=== PATIENT | male | born 1960 | race Two or more races ===

== ENCOUNTER 2020-02-07 12:56 | Emergency (ER) | payer OTHER ==
[~2020-02-07] VITALS: Ht 172.7 cm; Wt 63.0 kg
[2020-02-07] MEDS ORDERED: LIDOCAINE-MPF 1%, 5ML ONE (13:43)
[2020-02-07] MEDS ORDERED: SODIUM CHLORIDE FLUSH 10ML SYR IVF ONE (14:00)
[2020-02-07] MEDS ORDERED: HYDROmorphone 2 MG/ML, 1ML IVPush ONE (14:00)
[2020-02-07] MEDS ORDERED: ONDANSETRON 2MG/ML, 2ML IVPush ONE (14:00)
[2020-02-07] MEDS ORDERED: LIDOCAINE-MPF 1%, 5ML INFIL ONE (14:00)
[2020-02-07] MEDS ORDERED: SODIUM CHLORIDE 0.9% 1,000ML IVBOLUS ONE (14:00)
[2020-02-07] MEDS ORDERED: CEFAZOLIN PMX 1GM/50ML 50 ML IVPB ONE (14:00)
[2020-02-07] MEDS ORDERED: DIPH,PERTUSS(ACELL),TET VAC/PF 0.5 ML IM-VACC ONE ×2 (14:00→14:30)
[2020-02-07] MEDS ORDERED: HYDROmorphone 1 MG/ML, 1ML INJ ONE (14:26)
[2020-02-07] MEDS ORDERED: CEFAZOLIN PMX 1GM/50ML 50 ML ONE (14:26)
[2020-02-07] MEDS ORDERED: ONDANSETRON 2MG/ML, 2ML ONE ×2 (14:26→16:42)
[2020-02-07] MEDS ORDERED: LIDOCAINE-MPF 1%, 2ML ONE (14:26)
[2020-02-07] MEDS ORDERED: BUPIVACAINE/PF 0.25% ONE (15:44)
[2020-02-07 16:18] VITALS: BP 118/78
[2020-02-07] MEDS ORDERED: PROPOFOL 50 ML ONE (16:21)
[2020-02-07] MEDS ORDERED: MIDAZOLAM 1 MG/ML, 2ML ONE (16:22)
[2020-02-07] MEDS ORDERED: FENTANYL PF 250 MCG/5ML ONE (16:22)
[2020-02-07] MEDS ORDERED: LACTATED RINGERS 1,000 ML IV SCH (16:30)
[2020-02-07] MEDS ORDERED: CHLORHEXIDINE 15 ML UDC MM ONE (16:30)
[2020-02-07] MEDS ORDERED: no home meds per pt (16:34)
[2020-02-07] MEDS ORDERED: EPHEDRINE 50 MG/ML, 1ML IVPush PRN (17:00)
[2020-02-07] MEDS ORDERED: ONDANSETRON 2MG/ML, 2ML IVPush PRN (17:00)
[2020-02-07] MEDS ORDERED: EPHEDRINE 50 MG/ML, 1ML IM PRN (17:00)
[2020-02-07] MEDS ORDERED: PROMETHAZINE 25 MG/ML, 1ML IVPush PRN (17:00)
[2020-02-07] MEDS ORDERED: OXYcodone 5 MG/5 ML ORAL.SOL UDC PO PRN (17:00)
[2020-02-07] MEDS ORDERED: FENTANYL PF 100 MCG/2ML IV PRN (17:00)
[2020-02-07] MEDS ORDERED: DIAZEPAM 5 MG/ML, 2ML IVPush PRN (17:00)
[2020-02-07] MEDS ORDERED: ACETAMINOPHEN 325 MG TABLET PO PRN (17:00)
[2020-02-07] MEDS ORDERED: morphine SULFATE 10 MG/ML, 1ML IVPush PRN (17:00)
[2020-02-07] MEDS ORDERED: DIPHENHYDRAMINE 50 MG/ML, 1ML IVPush PRN (17:00)
[2020-02-07] MEDS ORDERED: LABETALOL 5MG/ML, 20ML IV PRN (17:00)
[2020-02-07] MEDS ORDERED: MEPERIDINE/PF 25MG/0.5ML IVPush PRN (17:00)
[2020-02-07] MEDS ORDERED: OXYcodone 5 MG/5 ML ORAL.SOL UDC ONE (17:52)
[2020-02-07] MEDS ORDERED: FENTANYL PF 100 MCG/2ML ONE (17:53)
[2020-02-07] MEDS ORDERED: KETOROLAC 30 MG/1 ML ONE (18:24)
[2020-02-07] MEDS ORDERED: KETOROLAC 30 MG/1 ML IVPush SCH (18:30)
== END 2020-02-07 18:50 | disposition home or self-care (01) ==
LOC: ED 15:01 → UNDOADMOB 15:47 → EDIP 15:47
DX: S61.011A Laceration without foreign body of right thumb without damage to nail, initial encounter (principal); Z20.828 Contact with and (suspected) exposure to other viral communicable diseases; W23.1XXA Caught, crushed, jammed, or pinched between stationary objects, initial encounter; Y93.89 Activity, other specified; Y92.89 Other specified places as the place of occurrence of the external cause; Y99.8 Other external cause status
CPT/HCPCS: 11760; 73140; 87635; 90471; 90715; 96365; 96375; 99285; J0690; J1170; J1885; J2250; J2405; J2704; J3010; J7030; J7120

== ENCOUNTER 2020-02-19 18:20 | Emergency (ER) | payer SELFPAY ==
[~2020-02-19] VITALS: Ht 172.7 cm; Wt 63.1 kg
[~2020-02-19 18:20] MED LIST: no home meds per pt
[2020-02-19 18:24] VITALS: BP 133/88
== END 2020-02-19 20:09 | disposition left against medical advice (07) ==
LOC: ED 19:45
DX: S61.011D Laceration without foreign body of right thumb without damage to nail, subsequent encounter (principal); X58.XXXD Exposure to other specified factors, subsequent encounter
CPT/HCPCS: 99283

== ENCOUNTER 2020-02-20 06:20 | Emergency (ER) | payer SELFPAY ==
[~2020-02-20] VITALS: Ht 175.3 cm; Wt 63.0 kg
[2020-02-20 06:22] VITALS: BP 115/86
== END 2020-02-20 06:41 | disposition home or self-care (01) ==
LOC: ED 06:30
DX: S61.011D Laceration without foreign body of right thumb without damage to nail, subsequent encounter (principal); Z48.02 Encounter for removal of sutures; X58.XXXD Exposure to other specified factors, subsequent encounter
CPT/HCPCS: 99282